=== PATIENT | female | born 1990 | race Caucasian/White ===

== ENCOUNTER 2023-12-02 04:40 | Inpatient (IN) | payer OTHER ==
[2023-12-02] VITALS (9 sets, daily range): BP systolic 112–123; BP diastolic 60–82; TEMP 98.2; O2SAT 98–99
[~2023-12-02] VITALS: Ht 160 cm; Wt 72.9 kg
[2023-12-02] MEDS ORDERED: PRENTAB9 PO (05:04)
[2023-12-02] MEDS ORDERED: HOME MED LIST COMPLETE! XX SCH (05:05)
[2023-12-02 06:15] LABS: HEMATOCRIT 38.3 % (36.0-47.0); HEMOGLOBIN 13.2 g/dl (12.0-15.5); MEAN CORPUSCULAR HEMOGLOBIN 31.7 pg (27.0-33.0); MEAN CORPUSCULAR HGB CONC 34.5 g/dl (32.0-36.5); MEAN CORPUSCULAR VOLUME 91.8 fl (80.0-96.0); PLATELET COUNT, AUTOMATED 176 10^3/uL (150-450); RED BLOOD COUNT 4.17 10^6/uL (4.00-5.40); WHITE BLOOD COUNT 12.1 10^3/uL (4.0-10.0)
[2023-12-02] MEDS ORDERED: METHYLERGONOVINE MALEATE 0.2MG/ML 1ML VIAL IM PRN (06:30)
[2023-12-02] MEDS ORDERED: CARBOPROST TROMETHAMINE 250 MCG/ML AMP IM PRN (06:30)
[2023-12-02] MEDS ORDERED: TRANEXAMIC ACID INJection 1,000 MG in NS 100 ML IV PRN (06:30)
[2023-12-02] MEDS ORDERED: LIDOCAINE 1% MDV 20ML VIAL INFIL PRN (06:30)
[2023-12-02] MEDS ORDERED: OXYTOCIN DRIP 30 UNITS in IV 1 EA IV PRN (06:30)
[2023-12-02] MEDS: AZITHROMYCIN INJ 500 MG, VIAL MATE ADAPTER 1 EACH in NS 250 ML IV ONE (07:38)
[2023-12-02] MEDS: LACTATED RINGER'S 1000 ML IV STA (07:39)
[2023-12-02] MEDS ORDERED: MORPHINE PRES-FREE INJ 10 MG/10 ML VIAL As Ordered ONE (09:52)
[2023-12-02] MEDS: ceFAZolin SOD 2 GM in IV 1 EA IV ONE (09:55)
[2023-12-02] MEDS: BICITRA 30ML SOLN UDC PO ONE (09:55)
[2023-12-02] MEDS ORDERED: PERCOCET 5MG/325MG TAB PO PRN ×3 (10:10→11:10)
[2023-12-02] MEDS ORDERED: NALOXONE INJ 0.4MG/1ML VIAL IV PRN ×2 (10:10)
[2023-12-02] MEDS ORDERED: ONDANSETRON 4MG 2ML VIAL IV PRN ×2 (10:10→11:10)
[2023-12-02] MEDS ORDERED: diphenhydrAMINE 50MG/ML VIAL IV PRN (10:10)
[2023-12-02] MEDS ORDERED: METOCLOPRAMIDE INJ 10MG/2ML VIAL IV PRN (10:10)
[2023-12-02] MEDS ORDERED: **NOTE PATIENT COMMENT** MISC XX SCH (10:10)
[2023-12-02] MEDS ORDERED: OXYTOCIN 30UNITS IN 0.9% NaCl 500ML IV BAG As Ordered ONE (10:24)
[2023-12-02] MEDS ORDERED: ePHEDrine SULFATE 25 MG/5 ML(5MG/ML) SYRINGE As Ordered ONE (10:24)
[2023-12-02] MEDS ORDERED: KETOROLAC 60MG 2ML VIAL As Ordered ONE (10:24)
[2023-12-02] MEDS ORDERED: ONDANSETRON 4MG 2ML VIAL As Ordered ONE (10:24)
[2023-12-02] MEDS ORDERED: PHENYLephrine 500MCG 5ML (100MCG/ML) SYRINGE As Ordered ONE (10:24)
[2023-12-02] MEDS ORDERED: fentaNYL 100 MCG/2 ML INJECTION As Ordered ONE (10:39)
[2023-12-02 10:48] LABS: CORD GAS ABE V -4.7; CORD GAS HCO3 V 22.8 MMOL/L; CORD GAS O2 SAT V 44.3 %; CORD GAS PCO2 V 51.7 mmHg; CORD GAS PH V 7.263 UNITS; CORD GAS SBC V 19.4 MMOL/L; CORD GAS TCO2 V 24.4 MMOL/L
[2023-12-02 10:50] LABS: CORD GAS ABE A -1.5; CORD GAS HCO3 A 23.8 MMOL/L; CORD GAS O2 SAT A 79.9 %; CORD GAS PCO2 A 42.2 mmHg; CORD GAS PH A 7.369 UNITS; CORD GAS PO2 A 32.6 mmHg; CORD GAS SBC A 22.8 MMOL/L; CORD GAS TCO2 A 25.1 MMOL/L
[2023-12-02] MEDS ORDERED: MORPHINE 4 MG/ML 1ML VIAL IV PRN (11:10)
[2023-12-02] MEDS ORDERED: ANUSOL HC CREAM 30GM TOP PRN (11:10)
[2023-12-02] MEDS ORDERED: SIMETHICONE 80MG CHEW TAB PO PRN (11:10)
[2023-12-02] MEDS: OXYTOCIN DRIP 30 UNITS in IV 1 EA IV SCH (11:37)
[2023-12-02] MEDS: SLF 3 ML SYR IV SCH (11:46)
[2023-12-02] MEDS: LR 1,000 ML IV SCH ×2 (12:08→19:30)
[2023-12-02] MEDS: KETOROLAC 30 MG/ML 1ML VIAL IV SCH (17:03)
[2023-12-02] MEDS: DOCUSATE SODIUM 100MG CAPSULE PO SCH (21:19)
[2023-12-03] VITALS (7 sets, daily range): BP systolic 98–120; BP diastolic 59–79; TEMP 98; O2SAT 98–100
[2023-12-03 08:03] LABS: MEAN CORPUSCULAR HEMOGLOBIN 30.9 pg (27.0-33.0); MEAN CORPUSCULAR VOLUME 93.4 fl (80.0-96.0); PLATELET COUNT, AUTOMATED 157 10^3/uL (150-450); WHITE BLOOD COUNT 13.4 10^3/uL (4.0-10.0)
[2023-12-03 08:06] LABS: HEMOGLOBIN 10.8 g/dl (12.0-15.5)
[2023-12-03 08:07] LABS: HEMATOCRIT 32.7 % (36.0-47.0)
[2023-12-03] MEDS: PRENATAL VITAMINS CHEWABLE TABLET PO SCH (10:03)
[2023-12-03] MEDS: RHO(D) IMMUNE GLOBULIN/MALTOSE 500MCG(2500IU)/2.2ML VIAL (WINRHO) IM SCH (13:55)
[2023-12-03] MEDS: IBUPROFEN 800 MG TAB PO SCH (14:01)
[2023-12-04 02:00] VITALS: BP 112/68; O2SAT 97
[2023-12-04 06:00] VITALS: BP 135/78; O2SAT 99
[2023-12-04] MEDS: MEASLES,MUMPS,RUBELLA VACCINE INJ (MMR-II) SC.IMMUN ONE (09:00)
[2023-12-04 10:00] VITALS: BP 117/80; O2SAT 98
[2023-12-04] MEDS: CALCIUM CARBONATE 500 MG CHEW U/D PO PRN (10:43)
[2023-12-04] MEDS ORDERED: oxyCODONE 5MG TAB PO PRN ×2 (14:20)
[2023-12-04] MEDS: ACETAMINOPHEN 500 MG TAB PO SCH (16:19)
[2023-12-04 18:00] VITALS: BP 117/73; O2SAT 98
[2023-12-04] MEDS: IBUPROFEN 600MG TAB PO SCH (18:48)
[2023-12-05] MEDS ORDERED: ACET-683 PO (03:29)
[2023-12-05] MEDS ORDERED: IBUP-1022 PO (03:29)
[2023-12-05] MEDS ORDERED: COLA100C5 PO (03:29)
[2023-12-05] MEDS ORDERED: OXYC-517 PO (03:29)
[2023-12-05 06:00] VITALS: BP 111/66; O2SAT 96
== END 2023-12-05 16:34 | disposition home or self-care (01) | DRG 771 ==
LOC: M LDO 04:40 → M LDI 05:18 → M OBS 12:45
PROVIDERS: ADMIT Obstetrics & Gynecology; ATTEND Obstetrics & Gynecology
PROC: 10D00Z1 Extraction of Products of Conception, Low, Open Approach (ICD-10-PCS; principal; 2023-12-02 09:00)
DX: O42.013 Preterm premature rupture of membranes, onset of labor within 24 hours of rupture, third trimester (principal); O60.14X0 Preterm labor third trimester with preterm delivery third trimester, not applicable or unspecified; Z37.0 Single live birth; Z3A.34 34 weeks gestation of pregnancy; O32.1XX0 Maternal care for breech presentation, not applicable or unspecified

== ENCOUNTER → 2024-03-21 | Outpatient (REF) | payer OTHER ==
[~2024-03-21] MED LIST: ACET-683 PO; COLA100C5 PO; IBUP-1022 PO; OXYC-517 PO; PRENTAB9 PO
[2024-03-25 14:02] LABS: HPV APTIMA Detected (Not Detected)
== END ==
LOC: M SFHCWAGY 13:22
PROVIDERS: ATTEND Nurse Practitioner Family
DX: Z12.4 Encounter for screening for malignant neoplasm of cervix (principal)
CPT/HCPCS: 87624; G0123

== ENCOUNTER 2024-07-29 08:24 | Outpatient (RCR) | payer OTHER | END 2024-08-15 | LOC: M PT 08:24 | PROVIDERS: ATTEND Obstetrics & Gynecology | DX: R10.2 Pelvic and perineal pain (principal) ==

== ENCOUNTER → 2025-06-02 | Outpatient (CLI) | payer OTHER ==
[~2025-06-02] MED LIST changes: -IBUP-1022 PO; +IBUP600T42 PO
[2025-06-08 22:57] LABS: ANA TITER 2 1:40 titer (NEGATIVE)
== END ==
LOC: M PLALAB 15:13
PROVIDERS: ATTEND Family Medicine
DX: M25.50 Pain in unspecified joint (principal)

== ENCOUNTER → 2025-06-02 | Outpatient (REF) | payer OTHER ==
[2025-06-04 17:03] LABS: HPV APTIMA Detected (Not Detected)
== END ==
LOC: M SFHCWAGY 18:14
PROVIDERS: ATTEND Nurse Practitioner Family
DX: Z12.4 Encounter for screening for malignant neoplasm of cervix (principal); R87.612 Low grade squamous intraepithelial lesion on cytologic smear of cervix (LGSIL)
CPT/HCPCS: 87624; G0123